=== PATIENT | male | born 1950 | race African-American/Black ===

== ENCOUNTER 2017-03-15 17:41 | Emergency (ER) | payer MEDICAID, MEDICARE ==
[~2017-03-15] VITALS: Ht 175.3 cm; Wt 65.9 kg
[2017-03-15] MEDS ORDERED: HYDR-309 PO (17:59)
[2017-03-15] MEDS ORDERED: QUET200T PO (17:59)
[2017-03-15] MEDS ORDERED: IBUP-2070 PO (18:00)
[2017-03-15] MEDS ORDERED: LISI-661 PO (18:00)
[2017-03-15] MEDS ORDERED: HYDROCODONE/ACETAMINOPHEN 10-325 MG TABLET PO ONE (21:30)
[2017-03-16 01:12] VITALS: BP 150/82
== END 2017-03-16 01:17 | disposition home or self-care (01) ==
LOC: EMS 17:42
DX: M54.42 Lumbago with sciatica, left side (principal); M79.662 Pain in left lower leg; I10 Essential (primary) hypertension; F17.210 Nicotine dependence, cigarettes, uncomplicated
CPT/HCPCS: 72100; 99284

== ENCOUNTER 2017-05-30 11:40 | Emergency (ER) | payer MEDICARE ==
[~2017-05-30] VITALS: Ht 175.3 cm; Wt 72.7 kg
[~2017-05-30 11:40] MED LIST: HYDR-309 PO; IBUP-2070 PO; LISI-661 PO; QUET200T PO
[2017-05-30] MEDS ORDERED: HYDROCODONE/ACETAMINOPHEN 5-325 MG TABLET PO ONE (13:45)
[2017-05-30] MEDS ORDERED: HYDR-305 PO (13:46)
[2017-05-30 14:29] VITALS: BP 151/72
== END 2017-05-30 14:35 | disposition home or self-care (01) ==
LOC: EMS 11:41
DX: S70.02XA Contusion of left hip, initial encounter (principal); M51.36 Other intervertebral disc degeneration, lumbar region; I10 Essential (primary) hypertension; F17.210 Nicotine dependence, cigarettes, uncomplicated; V89.2XXA Person injured in unspecified motor-vehicle accident, traffic, initial encounter; Y93.89 Activity, other specified; Y92.410 Unspecified street and highway as the place of occurrence of the external cause; Y99.8 Other external cause status
CPT/HCPCS: 72100; 73503; 99284